=== PATIENT | male | born 1985 | race Caucasian/White ===

== ENCOUNTER 2019-05-30 18:52 | Emergency (ER) | payer OTHER ==
[~2019-05-30] VITALS: Ht 157.5 cm; Wt 78.0 kg
[2019-05-30 18:57] VITALS: BP_SYST 140
[2019-05-30 20:51] VITALS: BP_SYST 136
== END 2019-05-30 19:56 | disposition home or self-care (01) ==
LOC: SED 18:52
DX: Z76.0 Encounter for issue of repeat prescription (principal)
CPT/HCPCS: 99283

== ENCOUNTER 2019-08-20 13:37 | Emergency (ER) | payer OTHER ==
[~2019-08-20] VITALS: Ht 167.6 cm; Wt 95.3 kg
[2019-08-20 14:23] VITALS: BP_SYST 122
--- NOTE | 2019-08-20 14:24 | NUR ---
ER COMPUTER SYSTEMS INFORMATION DIRECTOR Avril examining patient in triage.
--- NOTE | 2019-08-20 14:24 | NUR ---
Pt seen in triage room by STUDENT FINANCE ADVISOR, waiting for medication refill. No complaints of pain at this time.
[2019-08-20 14:27] VITALS: BP_SYST 122
--- NOTE | 2019-08-20 14:29 | NUR ---
Patient given written and verbal discharge instructions and verbalizes understanding. ER MD discussed with patient the results and treatment provided. Patient in stable condition. ID arm band removed. Rx of risperdal, depakote and lexapro given. Patient educated on pain management and to follow up with PMD. Pain Scale 0. Opportunity for questions provided and answered. Medication side effect fact sheet provided.
== END 2019-08-20 14:27 | disposition home or self-care (01) ==
LOC: SED 13:37
DX: R03.0 Elevated blood-pressure reading, without diagnosis of hypertension (principal); F17.210 Nicotine dependence, cigarettes, uncomplicated; Z76.0 Encounter for issue of repeat prescription
CPT/HCPCS: 99283

== ENCOUNTER 2019-10-03 11:38 | Emergency (ER) | payer OTHER ==
[~2019-10-03] VITALS: Ht 167.6 cm; Wt 86.2 kg
[2019-10-03 11:41] VITALS: BP_SYST 124
--- NOTE | 2019-10-03 11:47 | NUR ---
Patient to ER bed hallway to gown for evaluation. Side rails up.
--- NOTE | 2019-10-03 11:50 | NUR ---
pt arrives from home for a med refill.
--- NOTE | 2019-10-03 12:00 | NUR ---
ER at bedside examining patient.
[2019-10-03] MEDS ORDERED: RISP4TAB4 PO (12:22)
[2019-10-03] MEDS ORDERED: DIPH25CA83 PO (12:22)
[2019-10-03] MEDS ORDERED: ESCI20TA PO (12:22)
[2019-10-03] MEDS ORDERED: METH20CP PO (12:22)
[2019-10-03] MEDS ORDERED: DIVA500T2 PO (12:22)
--- NOTE | 2019-10-03 12:27 | NUR ---
Patient given written and verbal discharge instructions and verbalizes understanding. ER MD Chirinos discussed with patient the results and treatment provided. Patient in stable condition. Pt . Rx of Benadryl, Lexapro, Depakote, Risperdal, Ritalin given. Patient educated on pain management and to follow up with PMD. Pain Scale 0. Opportunity for questions provided and answered. Medication side effect fact sheet provided.
[2019-10-03 12:30] VITALS: BP_SYST 114
== END 2019-10-03 12:30 | disposition home or self-care (01) ==
LOC: SED 11:38
DX: G40.909 Epilepsy, unspecified, not intractable, without status epilepticus (principal); F32.9 Major depressive disorder, single episode, unspecified; F17.200 Nicotine dependence, unspecified, uncomplicated; Z76.0 Encounter for issue of repeat prescription; Z86.59 Personal history of other mental and behavioral disorders; Z79.899 Other long term (current) drug therapy
CPT/HCPCS: 99283

== ENCOUNTER 2020-01-27 21:08 | Emergency (ER) | payer OTHER ==
[~2020-01-27] VITALS: Ht 167.6 cm; Wt 97.5 kg
[~2020-01-27 21:08] MED LIST: DIPH25CA83 PO; DIVA500T2 PO; ESCI20TA PO; METH20CP PO; RISP4TAB4 PO
--- NOTE | 2020-01-27 21:08 | NUR ---
CALLED FOR TRIAGE, UNABLE TO LOCATE PT.
--- NOTE | 2020-01-27 21:18 | NUR ---
CALLED FOR TRIAGE, PT NOT IN WAITING ROOM, UNABLE TO LOCATE
--- NOTE | 2020-01-27 21:29 | NUR ---
PT CALLED AGAIN, PT RETURNED TO WAITING ROOM AND NOW IN RESTROOM.
[2020-01-27 21:30] VITALS: BP_SYST 139
--- NOTE | 2020-01-27 21:30 | NUR ---
Patient to ER bed 07 to gown for evaluation. Side rails up. Report given to KRYSTAL Kelley
--- NOTE | 2020-01-27 21:32 | NUR ---
ER at bedside examining patient.
--- NOTE | 2020-01-27 21:40 | NUR ---
Pt brought in by self. Pt awake, alert, oriented x4. Pt ambulates to bed with steady gait. pt states that he has come to ED for a refill on several psychiatric medications. Pt states that psychiatrist and pcp have instructed him to come to the ER for refills on medications. Pt denies any pain, shortness of breath, chest pain, nausea, vomiting, diarrhea, fever, hallucinations, SI/HI, or other medical complaint at this time. Pt states he is free from any medical complaint, refuses all care aside from basic exam and medication refill. Pt resting in ED bed comfortably, VSS
--- NOTE | 2020-01-27 22:00 | NUR ---
Pt became disruptive in room, demanding that staff refill his medication exactly as he has described. Stated that MD is required to refill whichever medications that he desires, in the exact amount he desires. Pt redirected, advised that disruptive, rude behavior will not be tolerated as it compromises safety of staff and other patients.
--- NOTE | 2020-01-27 22:20 | NUR ---
Pt became increasingly disruptive when attempting to discharge him. Stating that staff, MD are incompetent and are required to dispense medications as he wishes. Pt requested we triple the amount of medications given to him, to last longer as he states he needs to increase his dosage.
[2020-01-27 22:24] VITALS: BP_SYST 139
--- NOTE | 2020-01-27 22:24 | NUR ---
Patient given written and verbal discharge instructions and verbalizes understanding. ER MD discussed with patient the results and treatment provided. Patient in stable condition. ID arm band removed. No IV Rx of lexapro, depakote, risperdal given. Patient educated to follow up with PMD. Pain Scale 0/10. Opportunity for questions provided and answered. Medication side effect fact sheet provided.
== END 2020-01-27 22:24 | disposition home or self-care (01) ==
LOC: SED 21:08
DX: F29 Unspecified psychosis not due to a substance or known physiological condition (principal); Z76.0 Encounter for issue of repeat prescription; Z79.899 Other long term (current) drug therapy
CPT/HCPCS: 99281